=== PATIENT | female | born 1955 | race African-American/Black ===

== ENCOUNTER 2020-03-06 09:40 | Emergency (ER) | payer MEDICAID ==
[~2020-03-06] VITALS: Ht 154.9 cm; Wt 91.0 kg
[2020-03-06] MEDS ORDERED: ACETAMINOPHEN WITH CODEINE 300/30MG TABLET PO ONE (10:15)
[2020-03-06] MEDS ORDERED: ONDANSETRON 4MG ODT PO ONE (10:15)
[2020-03-06 11:15] VITALS: BP 148/75
== END 2020-03-06 11:15 | disposition home or self-care (01) ==
LOC: ER 09:51
DX: S80.11XA Contusion of right lower leg, initial encounter (principal); I10 Essential (primary) hypertension; E03.9 Hypothyroidism, unspecified; W01.0XXA Fall on same level from slipping, tripping and stumbling without subsequent striking against object, initial encounter; Y93.89 Activity, other specified; Y92.512 Supermarket, store or market as the place of occurrence of the external cause
CPT/HCPCS: 73502; 73552; 99284; Q0162